=== PATIENT | male | born 1990 | race Two or more races ===

== ENCOUNTER 2016-12-15 14:58 | Emergency (ER) | payer SELFPAY ==
[~2016-12-15] VITALS: Ht 175.3 cm; Wt 74.8 kg
[~2016-12-15 14:58] MED LIST: IBUPROFEN400 MG ORAL; IBUPROFEN600 MG ORAL; NKM; NORCO 5-325 TA1 EACH ORAL; PROMETHAZINE-C118 M1 ORAL; ZITHROMAX250 MG ORAL
[2016-12-15 15:40] VITALS: BP 117/78
[2016-12-15] MEDS ORDERED: Ketorolac 30mg Inj IM ONE (15:45)
[2016-12-15] MEDS ORDERED: IBUPROFEN600 MG ORAL (16:34)
[2016-12-15] MEDS ORDERED: AMOXICILLIN500 MG ORAL (16:34)
[2016-12-15 16:59] VITALS: BP 117/78
[2016-12-15] MEDS ORDERED: TYLENOL EXTRA500 MG ORAL (18:31)
[2016-12-15] MEDS ORDERED: BENADRYL25 MG ORAL (18:31)
[2016-12-15] MEDS ORDERED: PREDNISONE20 MG ORAL (18:31)
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
[2016-12-16] MEDS ORDERED: UNOBMED (17:10)
[2016-12-16] MEDS ORDERED: ROBAXIN-750750 MG PO (18:21)
== END 2016-12-15 17:02 | disposition home or self-care (01) ==
LOC: EMR 15:39
DX: R51 Headache (principal); J02.9 Acute pharyngitis, unspecified
CPT/HCPCS: 96372; 99283; J1885

== ENCOUNTER 2016-12-15 17:26 | Emergency (ER) | payer SELFPAY ==
[~2016-12-15] VITALS: Ht 175.3 cm; Wt 85.3 kg
[~2016-12-15 17:26] MED LIST changes: +AMOXICILLIN500 MG ORAL
[2016-12-15 17:35] VITALS: BP 122/79
[2016-12-15] MEDS ORDERED: PredniSONE 20mg tab ORAL ONE (17:45)
[2016-12-15] MEDS ORDERED: BENADRYL25 MG ORAL (18:31)
[2016-12-15] MEDS ORDERED: PREDNISONE20 MG ORAL (18:31)
[2016-12-15] MEDS ORDERED: TYLENOL EXTRA500 MG ORAL (18:31)
[2016-12-15 18:38] VITALS: BP 120/79
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
[2016-12-16] MEDS ORDERED: UNOBMED (17:10)
[2016-12-16] MEDS ORDERED: ROBAXIN-750750 MG PO (18:21)
== END 2016-12-15 18:41 | disposition home or self-care (01) ==
LOC: EMR 17:58
DX: T78.40XA Allergy, unspecified, initial encounter (principal); Y92.89 Other specified places as the place of occurrence of the external cause; J02.9 Acute pharyngitis, unspecified; R60.0 Localized edema; E05.90 Thyrotoxicosis, unspecified without thyrotoxic crisis or storm
CPT/HCPCS: 99284

== ENCOUNTER 2016-12-16 16:54 | Emergency (ER) | payer SELFPAY ==
[~2016-12-16] VITALS: Ht 170.2 cm; Wt 85.3 kg
[~2016-12-16 16:54] MED LIST changes: +BENADRYL25 MG ORAL; +PREDNISONE20 MG ORAL; +TYLENOL EXTRA500 MG ORAL
[2016-12-16] MEDS ORDERED: UNOBMED (17:10)
--- NOTE | 2016-12-16 17:11 | Emergency Room Report ---
History of Present Illness General Chief Complaint: Back Pain-No Injury Source: Patient Present Illness HPI The patient is a 26-year-old male presenting for lower back pain. The patient was seen in this emergency department 2 times yesterday for unrelated complaints and did not complain of back pain at that time. The patient states that he awoke this morning with a stiff back. Pain is described as a 10 out of 10 dull ache. Pain does not radiate. He denies any known injury to the area. He denies new bed or bad sleeping position. Pain does not radiate. It is worse with bending over and touch. He denies any other symptoms including nausea, vomiting, fever, chills, abdominal pain, dysuria, hematuria Allergies: Coded Allergies: KETOROLAC (Verified Allergy, Unknown, 12/16/16) Patient History Past Medical History: see triage record Pertinent Family History: none Reviewed Nursing Documentation: PMH: Agreed, PSxH: Agreed Nursing Documentation-PMH Past Medical History: No History, Except For Review of Systems All Other Systems: negative except mentioned in HPI Physical Exam Vital Signs Date Time Temp Pulse Resp B/P Pulse Ox O2 Delivery O2 Flow Rate FiO2 12/16/16 17:06 98.2 97 16 118/80 95 Room Air Sp02 EP Interpretation: reviewed, normal General Appearance: no apparent distress, alert, GCS 15, non-toxic Head: normocephalic, atraumatic Eyes: bilateral eye PERRL, bilateral eye normal inspection ENT: hearing grossly normal, normal pharynx, no angioedema, normal voice Neck: full range of motion, supple/symm/no masses Respiratory: chest non-tender, lungs clear, normal breath sounds, speaking full sentences Gastrointestinal: normal bowel sounds, non tender, soft, non-distended, no guarding, no rebound Musculoskeletal: back normal, gait/station normal, normal range of motion, tender - bilat Lumbar paraspinous TTP Neurologic: alert, oriented x3, responsive, motor strength/tone normal, sensory intact, speech normal Psychiatric: judgement/insight normal, memory normal, mood/affect normal, no suicidal/homicidal ideation Skin: normal color, no rash, warm/dry, well hydrated Medical Decision Making PA Attestation Dr. Hi is my supervising physician. Patient management was discussed with my supervising physician Diagnostic Impression: Primary Impression: Muscle strain ER Course The patient is a 26-year-old male presenting for lower back pain. Ddx considered include but not limited to lumbar strain, degenerative disease, muscle spasm, pyelonephritis Physical exam: Afebrile. No apparent distress. There is bilateral lumbar paraspinous tenderness. No midline tenderness no step -offs. Normal gait. Full active range of motion. Otherwise exam unremarkable The patient is given Tylenol and muscle relaxer as he is allergic to NSAIDs. To be discharged home with similar medications. ER precautions are given Last Vital Signs Date Time Temp Pulse Resp B/P Pulse Ox O2 Delivery O2 Flow Rate FiO2 12/16/16 17:06 98.2 97 16 118/80 95 Room Air Status: improved Disposition: HOME, SELF-CARE Condition: Improved Scripts Methocarbamol* (ROBAXIN-750*) 750 Mg Tablet 750 MG PO TID, #21 TAB 0 Refills Prov: LAKHWINDER AVILA 12/16/16 LAKHWINDER AVILA December 16, 2016 17:11
[2016-12-16] MEDS ORDERED: ROBAXIN-750750 MG PO (18:21)
[2016-12-16 18:33] VITALS: BP 123/80
== END 2016-12-16 18:33 | disposition home or self-care (01) ==
LOC: EMR 17:27
DX: S39.012A Strain of muscle, fascia and tendon of lower back, initial encounter (principal); X58.XXXA Exposure to other specified factors, initial encounter; Y93.9 Activity, unspecified; Y92.9 Unspecified place or not applicable; Z88.8 Allergy status to other drugs, medicaments and biological substances
CPT/HCPCS: 99283

== ENCOUNTER 2018-06-12 20:40 | Emergency (ER) | payer OTHER ==
[~2018-06-12] VITALS: Ht 175.3 cm; Wt 81.6 kg
[~2018-06-12 20:40] MED LIST changes: +ROBAXIN-750750 MG PO; +UNOBMED
[2018-06-12 21:11] VITALS: BP 124/88
[2018-06-12] MEDS ORDERED: TRAMADOL HCL50 MG ORAL (21:25)
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
[2018-06-12 21:50] VITALS: BP 124/88
== END 2018-06-12 21:50 | disposition home or self-care (01) ==
LOC: EMR 21:06
DX: M54.2 Cervicalgia (principal); G89.29 Other chronic pain
CPT/HCPCS: 99282